=== PATIENT | female | born 1925 | race Caucasian/White ===

== ENCOUNTER → 2017-08-09 | Outpatient (CLI) | payer MEDICARE, BC ==
--- NOTE | 2017-08-09 15:17 | US ---
EXAMINATION TYPE: US venous doppler duplex LE LT DATE OF EXAM: 08/09/2017 2:36 PM COMPARISON: US CLINICAL HISTORY: R60.0 EDEMA. Left leg swelling x 3 weeks. SIDE PERFORMED: Left TECHNIQUE: The lower extremity deep venous system is examined utilizing real time linear array sonog karen with graded compression, doppler sonography and color-flow sonography. VESSELS IMAGED: Common Femoral Vein Deep Femoral Vein Greater Saphenous Vein * Femoral Vein Popliteal Vein Small Saphenous Vein * Proximal Calf Veins (* superficial vessels) Left Leg: Negative for DVT. Edema channels are noted at ankle level. IMPRESSION: 1. Left lower extremity ultrasound negative for deep venous thrombosis. 2. Superficial soft tissue swelling
== END | disposition home or self-care (01) ==
LOC: RADUSWWP 14:07
PROVIDERS: ATTEND Family Medicine
DX: M79.89 Other specified soft tissue disorders (principal)

== ENCOUNTER → 2017-08-24 | Outpatient (CLI) | payer MEDICARE, BC ==
[2017-08-24 14:35] LABS: Blood Urea Nitrogen 29 mg/dL (7-17)
--- NOTE | 2017-08-24 15:46 | CT ---
EXAMINATION TYPE: CT knee LT wo/w con DATE OF EXAM: 08/24/2017 COMPARISON: NONE HISTORY: Left sided knee swelling and knee pain CT DLP: 930 mGycm Automated exposure control for dose reduction was used. CONTRAST: Performed with IV Contrast, patient injected with 100 mL of Isovue 300. FINDINGS: There is a left-sided total knee arthroplasty creating spray artifact and partially limiting evaluati on. Components appear to abut the cortical surfaces without evidence for prosthetic loosening, septic or aseptic. There is a small suprapatellar joint effusion noted and thickening of the distal quadric eps tendon incidentally seen with overlying subcutaneous edema. Additionally thickening of the patell ar tendon is also seen with nonspecific subcutaneous edema anterior to it. Moderate atherosclerosis i s seen of the popliteal artery and its branches. There is mild generalized muscular atrophy. No focal fluid collection to suggest abscess. No aggressive appearing osseous lesion. No evidence of skull [place] b one acute fracture. Osseous demineralization is seen with cortical thinning and medullary space lucen cy. IMPRESSION: 1. LEFT KNEE PROSTHESIS WITH NO EVIDENCE OF HARDWARE FRACTURE OR LOOSENING. NO [place] BONE FRACTURE O F THE LEFT KNEE. 2. THICKENING OF THE DISTAL QUADRICEPS TENDON AND PATELLAR TENDON WITH OVERLYING MILD SUBCUTANEOUS ED JOSE DANIEL. FINDINGS COULD RELATE TO PARTIAL TEAR OR SPRAIN. 3. GENERALIZED OSSEOUS DEMINERALIZATION AND MILD GENERALIZED MUSCULAR ATROPHY. 4. SMALL SUPRAPATELLAR JOINT EFFUSION WITH NO ADDITIONAL FOCAL FLUID COLLECTION TO SUGGEST ABSCESS.
== END ==
LOC: RADCTMAIN 13:54
PROVIDERS: ATTEND Family Medicine
DX: M67.962 Unspecified disorder of synovium and tendon, left lower leg (principal); M25.462 Effusion, left knee; M81.0 Age-related osteoporosis without current pathological fracture; M62.562 Muscle wasting and atrophy, not elsewhere classified, left lower leg; Z96.652 Presence of left artificial knee joint
CPT/HCPCS: 82565; 84520; 36415; 73702; Q9967